=== PATIENT | male | born 1955 | race Caucasian/White ===

== ENCOUNTER 2023-05-19 15:19 | Outpatient (RCR) | payer MEDICARE, SELFPAY ==
--- NOTE | 2023-05-25 13:15 | HP.SP.EV_ITS ---
Visit History Visit Info Date of Eval: 05/19/23 Visit: 1 Federal Aid Coordinator: LETHA History Attending Doctor: AL Referring Doctor: AL Reason for Referral: PARKINSONS/RX W/ PT Medical Diagnosis: parkinson Previous speech therapy: No Results: Pt lives at home with his who is an RN. Other Relevant Medical History/Diagnoses/Surgery: No issues with voice as of now. Smoking Status: Never smoker Diagnosis Diagnosis: Parkinson's Disease Pain Is pain an issue with your current prescribed condition?: No Personal Preferred language: [place] Subjective Dysphagia Symptoms Reported Symptoms/Problems with: Food gets stuck Current Diet Solids Current Diet: Regular Current Diet Liquids Current Liquids: Thin Comments MBSS: -: MBSS in [facility]. Due to food getting stick in his esophagus, but no issues with swallowing per pt report. Subjective Cog/Ling/Com Subjective Cognitive/Linguistic/Communication: No cognitive concerns reported by pt. Subjective Dysarthria/Motor Subjective Subjective: No articulation errors noted in conversation or when reading the rainbow passage. Objective Voice Date of Diagnosis Previous Speech Therapy (If yes, describe): No Details of therapy: Conversation db - 57-65, Avg - 61db Trying to project - 69 db Reading - 60-62 db Medications Familiar with on/off effect: Yes Objective data Objective Data: Objective data: Sound pressure level (SPL acoustic correlation of vocal loudness) was measured with a sound level meter at a distance of 40 cm from the patient's mouth. Average conversational loudness is 70-80 dB and sustained phonation duration is 15 to 20 seconds for a typical adult. Sustained Phonation Intensity (dB SPL): 60-62 Is the individual stimulable to increase vocal intensity: Yes Pitch Change Range (Hz) High: yes Pitch Change Range (Hz) Low: yes Vocal Intensity at Sentence Level (dB SPL): 63 Vocal Intensity at Paragraph Level (dB SPL): 61 Vocal Intensity at Conversational Level (dB SPL): 60 Acoustic Analysis Acoustic Analysis: These results represent reading and conversational decibel levels that may significantly reduce speech intelligibility and communicative effectiveness. Amplitude Intensity Sustained (Average) in dB SPL: Pt was able to I complete pitch glides high to low & low to high Reference: Neuro-QoL instrument HDQLIFE - Speech Difficulties In the past 7 days. It was difficult for other people to understand me.: Never Is was difficult to speak clearly?: Never In the past 7 days.. How often did you limit your social activites because you had difficulty speaking?: Never In the past 7 days... I had trouble speaking.: Not at all I was frustrated by my speech difficulties.: Not at all How much DIFFICULTY do you have... ...saying what you want to say?: No difficulty Score HDQLIFE Speech Difficulties Raw Score: 6 HDQLIFE Speech Difficulties T - Score: 38 Radiation Oncology Patient Plan Plan Plan: No skilled speech therapy warranted at this time. Pt has a diagnosis of Parkinson's disease and came in for a baseline evaluation. Pt is not currently experience major difficulties with his speech, language or swallowing function. ST provided education on signs & symptoms to look out for as his condition progresses. ST recommended a reevaluation in 6m to a year to assess function or sooner if s/s of aspiration occurs or if vocal function decreases & begins to impede daily functioning. Recommendations MBS: No Treatment Warranted: No Patient/Family Goal Patient/Family Goal: Pt wanted to receive baseline testing for parkinson's disease Education Patient has Indicated that the Following Identified Educational Needs: None The Patient has indicated that they have no educational or learning abilities that may effect their care.: Yes Patient Instruction Patient Education: Diagnosis, Treatment Plan and Goals Person Taught: Patient Teaching Method: Discussion Response to teaching: Verbalize understanding
== END 2023-05-19 19:00 | disposition home or self-care (01) ==
LOC: SP 15:19
PROVIDERS: PCP Family Medicine; Referring Provider Nurse Practitioner; Visit Provider Nurse Practitioner
DX: R13.10 Dysphagia, unspecified (principal); G20.A1 Parkinson's disease without dyskinesia, without mention of fluctuations
CPT/HCPCS: 92523